=== PATIENT | male | born 1955 | race Caucasian/White ===

== ENCOUNTER 2024-03-15 12:28 | Day surgery (SDC) | payer OTHER, SELFPAY ==
[2024-03-15 12:57] VITALS: BP 120/80; PULSE 67; RESP 17; TEMP 36.2; O2SAT 89
--- NOTE | 2024-03-15 13:18 | PM.HP.1 ---
History of Present Illness History of Present Illness Date Patient Seen: 03/15/24 Chief complaint: SDC Narrative: History of colon polyps PFSH Social History Smoking Status: Former smoker alcohol intake: current Meds Home Medications and Allergies Allergies Allergy/AdvReac Type Severity Reaction Status Date / Time nivolumab Allergy Verified 03/15/24 12:52 diazepam [From Valium] AdvReac Verified 03/15/24 12:52 Exam Vital Signs (past 8 hours): - 03/15/24 12:57 Temperature 97.1 F L Pulse Rate 67 Respiratory Rate 17 Blood Pressure 120/80 Pulse Oximetry 89 L Oxygen Delivery Method Room Air Oxygen Delivery Method Room Air Narrative Exam Narrative: Oropharynx free of lesion Assessment & Plan Assessment & Plan narrative: History of colon polyps need for follow-up colonoscopy. Last was 5 years ago. Risks, benefits, alternatives have been explained Time-Based Coding :: [TOTAL MINUTES] spent with patient and on the chart (including review of chart, obtaining history, exam, reviewing outside data, placing orders, documenting exam and treatment plan, and counseling patient) on [DATE].
--- NOTE | 2024-03-15 13:19 | PM.OP.COLON ---
Operative Date/Time/Diagnoses Date of procedure: 03/15/24 Pre-op diagnosis: See indication and findings Procedure & Clinicians Study performed: Colonoscopy Indications: History of colon polyps Surgeon: Cristhian Drew Procedure Notes Procedure in detail: After informed consent was obtained the patient was placed in left lateral decubitus position. The video colonoscope was introduced the rectum slowly advanced cecum. Preparation was good. On slow withdrawal mucosa was carefully examined. The scope was removed. The patient tolerated the procedure well. Blood loss none Complications none Sedation mac Findings 1. Extensive pancolonic diverticulosis particularly on the left side Two. Otherwise negative colonoscopy to cecum Mr. Ramesh should have follow-up colonoscopy in 5 years
[2024-03-15 13:46] VITALS: BP 111/76; PULSE 62; RESP 13; TEMP 36.2; O2SAT 99
[2024-03-15 13:51] VITALS: BP 117/73; PULSE 65; RESP 13; O2SAT 99
[2024-03-15 13:56] VITALS: BP 116/73; PULSE 61; RESP 12; O2SAT 99
[2024-03-15 14:03] VITALS: BP 113/75; PULSE 87; RESP 15; O2SAT 99
[2024-03-15 14:10] VITALS: BP 124/77; PULSE 85; RESP 16; O2SAT 99
== END 2024-03-15 14:14 | disposition home or self-care (01) ==
PROVIDERS: PCP Nurse Practitioner Family; Referring Provider Internal Medicine Gastroenterology; Visit Provider Internal Medicine Gastroenterology
PROC: 0DJD8ZZ Inspection of Lower Intestinal Tract, Via Natural or Artificial Opening Endoscopic (ICD-10-PCS; CPT 45378; principal; 2024-03-15 13:30)
DX: Z12.11 Encounter for screening for malignant neoplasm of colon (principal); Z86.0100 Personal history of colon polyps, unspecified; K57.30 Diverticulosis of large intestine without perforation or abscess without bleeding
CPT/HCPCS: 45378; J2704